=== PATIENT | male | born 1960 | race Caucasian/White ===

== ENCOUNTER 2018-02-20 05:12 | Emergency (ER) | payer BC, OTHER ==
[2018-02-20 05:25] VITALS: BP 157/109; PULSE 75; TEMP 97.6; BMI 39.9
--- NOTE | 2018-02-20 05:31 | PDOC ---
History of Present Illness - General History Source: Patient Exam Limitations: No Limitations - History of Present Illness Initial Comments: 02/20/18 05:38 The patient is a 57 year old male with no significant PMH who presents to the emergency department with groin pain beginning approximately yesterday. The patient reports working yesterday and doing heavy lifting, after which he developed mild groin pain. However, he reports this morning his groin pain has worsened. He reports taking Motrin prior to presentation to minimal relief. The patient denies testicular pain. He denies difficulty passing stool. He denies nausea or vomiting. The patient denies chest pain, shortness of breath, headache and dizziness. Denies fever, chills, nausea, vomit, diarrhea and constipation. Denies dysuria, frequency, urgency and hematuria. Allergies: NKA Past surgical history: None reported. Social history: No reported cigarette, alcohol, or drug use. PCP: None reported. <Enrique Solorzano - Last Filed: 02/20/18 05:36> - General History Source: Patient <PérezAlfredo kim - Last Filed: 02/20/18 19:23> - General Chief Complaint: Pain Stated Complaint: PAIN,GROIN Time Seen by Provider: 02/20/18 05:31 Past History <Enrique Solorzano - Last Filed: 02/20/18 05:36> - Past Medical History Anemia: No Asthma: No Cancer: No Cardiac Disorders: No CVA: No COPD: No CHF: No Dementia: No Diabetes: No GI Disorders: No Disorders: No HTN: No Hypercholesterolemia: No Liver Disease: No Seizures: No Thyroid Disease: No - Surgical History Abdominal Surgery: No Appendectomy: No Cardiac Surgery: No Cholecystectomy: No Lung Surgery: No Neurologic Surgery: No Orthopedic Surgery: No - Suicide/Smoking/Psychosocial Hx Smoking Status: No Smoking History: Never smoked Have you smoked in the past 12 months: No Number of Cigarettes Smoked Daily: 0 Information on smoking cessation initiated: No Hx Alcohol Use: No Drug/Substance Use Hx: No Substance Use Type: None Hx Substance Use Treatment: No <Alfredo Estrada - Last Filed: 02/20/18 19:23> - Past Medical History Allergies/Adverse Reactions: Allergies Allergy/AdvReac Type Severity Reaction Status Date / Time No Known Allergies Allergy Verified 02/20/18 05:24 Home Medications: Ambulatory Orders No Home Medications 0 dose .ROUTE UTDICT 11/01/13 Review of Systems - Review of Systems Able to Perform ROS?: Yes Comments:: 02/20/18 05:38 CONSTITUTIONAL: Absent: fever, chills, diaphoresis, generalized weakness, malaise, loss of appetite HEENT: Absent: rhinorrhea, nasal congestion, throat pain, throat swelling, difficulty swallowing, mouth swelling, ear pain, eye pain, visual Changes CARDIOVASCULAR: Absent: chest pain, syncope, palpitations, irregular heart rate, lightheadedness , peripheral edema RESPIRATORY: Absent: cough, shortness of breath, dyspnea with exertion, orthopnea, wheezing, stridor, hemoptysis GASTROINTESTINAL: Absent: abdominal pain, abdominal distension, nausea, vomiting, diarrhea, constipation, melena, hematochezia GENITOURINARY: Absent: dysuria, frequency, urgency, hesitancy, hematuria, flank pain, genital pain MUSCULOSKELETAL: (+) Groin pain. Absent:arthralgia, joint swelling SKIN: Absent: rash, itching, pallor HEMATOLOGIC/IMMUNOLOGIC: Absent: easy bleeding, easy bruising, lymphadenopathy, frequent infections ENDOCRINE: Absent: unexplained weight gain, unexplained weight loss, heat intolerance, cold intolerance NEUROLOGIC: Absent: headache, focal weakness or paresthesias, dizziness, unsteady gait, seizure, mental status changes, bladder or bowel incontinence PSYCHIATRIC: Absent: anxiety, depression, suicidal or homicidal ideation, hallucinations. <Enrique Solorzano - Last Filed: 02/20/18 05:36> *Physical Exam - Vital Signs Last Vital Signs Temp Pulse Resp BP Pulse Ox 97.6 F 75 20 157/109 97 02/20/18 05:24 02/20/18 05:24 02/20/18 05:24 02/20/18 05:24 02/20/18 05:24 - Physical Exam Comments: 02/20/18 05:38 GENERAL: Well developed, well nourished. Awake and alert. No acute distress. HEENT: Normocephalic, atraumatic. PERRLA, EOMI. No conjunctival pallor. Sclera are non- icteric. Moist mucous membranes. Oropharynx is clear. NECK: Supple. Full ROM. No JVD. Carotid pulses 2+ and symmetric, without bruits. No thyromegaly. No lymphadenopathy. CARDIOVASCULAR: Regular rate and rhythm. No murmurs, rubs, or gallops. Distal pulses are 2+ and symmetric. PULMONARY: No evidence of respiratory distress. Lungs clear to auscultation bilaterally. No wheezing, rales or rhonchi. ABDOMINAL: Soft. Non-tender. Non-distended. No rebound or guarding. No organomegaly. Normoactive bowel sounds. GENITAL: No testicular tenderness. No hernial defect palpated on right side. MUSCULOSKELETAL: Normal range of motion at all joints. No bony deformities or tenderness. No CVA tenderness. EXTREMITIES: No cyanosis. No clubbing. No edema. No calf tenderness. SKIN: Warm and dry. Normal capillary refill. No rashes. No jaundice. NEUROLOGICAL: Alert, awake, appropriate. Cranial nerves 2-12 intact. No deficits to light touch and temperature in face, upper extremities and lower extremities. No motor deficits in the in face, upper extremities and lower extremities. Normoreflexic in the upper and lower extremities. Normal speech. Toes are downgoing bilaterally. Gait is normal without ataxia. PSYCHIATRIC: Cooperative. Good eye contact. Appropriate mood and affect. <Enrique Solorzano - Last Filed: 02/20/18 05:36> - Vital Signs Last Vital Signs Temp Pulse Resp BP Pulse Ox 97.6 F 75 20 157/109 97 02/20/18 05:24 02/20/18 05:24 02/20/18 05:24 02/20/18 05:24 02/20/18 05:24 <Alfredo Estrada - Last Filed: 02/20/18 19:23> Medical Decision Making - Medical Decision Making 02/20/18 19:23 Dr. Estrada: The scribe's documentation has been prepared under my direction and personally reviewed by me in its entirery. I confirm that the note above accurately reflects all work, treatment, procedures, and medical decision making performed by me. <Alfredo Estrada - Last Filed: 02/20/18 19:23> *DC/Admit/Observation/Transfer - Attestations Scribe Attestion: 02/20/18 05:38 Documentation prepared by Enrique Solorzano, acting as bacteriologist medical for Alfredo Estrada DO. <Enrique Solorzano - Last Filed: 02/20/18 05:36> - Discharge Dispostion Decision to Admit order: No <Alfredo Estrada - Last Filed: 02/20/18 19:23> Diagnosis at time of Disposition: Groin pain Qualifiers: Laterality: right Qualified Code(s): R10.31 - Right lower quadrant pain - Discharge Dispostion Disposition: HOME Condition at time of disposition: Stable - Referrals Referrals: Micheal Molina MD [Staff Physician] - - Patient Instructions Printed Discharge Instructions: DI for Groin Strain Additional Instructions: Apply ice to the groin area for 10 mins three times a day. continue taking Motrin as you have every 8 hours. Use scrotal support for lifting while your still have pain Follow up with the doctor referred to you if symptoms don't improve - Post Discharge Activity Forms/Work/School Notes: Back to Work
== END 2018-02-20 05:38 | disposition home or self-care (01) ==
LOC: JER 05:12
DX: S39.011A Strain of muscle, fascia and tendon of abdomen, initial encounter (principal); X50.0XXA Overexertion from strenuous movement or load, initial encounter; Y93.89 Activity, other specified; Y92.69 Other specified industrial and construction area as the place of occurrence of the external cause; Y99.0 Civilian activity done for income or pay
CPT/HCPCS: 99282-25

== ENCOUNTER 2019-08-15 16:45 | Emergency (ER) | payer BC, OTHER ==
[2019-08-15 16:54] VITALS: BMI 38.4
--- NOTE | 2019-08-15 17:44 | PDOC ---
Documentation entered by Carlo Jang SCRIBE, acting as scribe for Doroteo Muñiz MD. Doroteo Muñiz MD: This documentation has been prepared by the Suhail lopez Daniel, SCRIBE, under my direction and personally reviewed by me in its entirety. I confirm that the documentation accurately reflects all work, treatment, procedures, and medical decision making performed by me. History of Present Illness - General Chief Complaint: Edema Stated Complaint: LT LEG PAIN/SWOLLEN Time Seen by Provider: 08/15/19 17:22 History Source: Patient Exam Limitations: No Limitations - History of Present Illness Initial Comments: 08/15/19 17:34 The patient is a 59 year old male with no past medical history here today for evaluation of left knee/lower leg pain and swelling. The patient reports that 1 week ago he was working with a jackhammer when it got stuck in the black top and he wrenched it which caused his left knee to twist. He notes that the pain in his left knee did not start immediately but has been hurting for the past week and he noted swelling from just above the knee to the calf. He states that his pain is better with movement and worse with rest. Patient denies headache, lightheadedness. Denies fever, chills. Denies chest pain, shortness of breath. Denies nausea, vomiting, diarrhea, abdominal pain. Denies travel/immobilization/history of DVT/PE Allergies: NKA Surgical history: none Past History - Past Medical History Allergies/Adverse Reactions: Allergies Allergy/AdvReac Type Severity Reaction Status Date / Time No Known Allergies Allergy Verified 08/15/19 16:52 Home Medications: Ambulatory Orders No Home Medications 0 dose .ROUTE UTDICT 11/01/13 Anemia: No Asthma: No Cancer: No Cardiac Disorders: No CVA: No COPD: No CHF: No Dementia: No Diabetes: No GI Disorders: No Disorders: No HTN: No Hypercholesterolemia: No Liver Disease: No Seizures: No Thyroid Disease: No - Surgical History Abdominal Surgery: No Appendectomy: No Cardiac Surgery: No Cholecystectomy: No Lung Surgery: No Neurologic Surgery: No Orthopedic Surgery: No - Psycho Social/Smoking Cessation Hx Smoking Status: No Smoking History: Never smoked Have you smoked in the past 12 months: No Number of Cigarettes Smoked Daily: 0 Hx Alcohol Use: No Drug/Substance Use Hx: No Substance Use Type: None Hx Substance Use Treatment: No Review of Systems - Review of Systems Able to Perform ROS?: Yes Comments:: 08/15/19 17:34 GENERAL/CONSTITUTIONAL: No fever or chills. No weakness. HEAD, EYES, EARS, NOSE AND THROAT: No change in vision. No ear pain or discharge. No sore throat. CARDIOVASCULAR: No chest pain or shortness of breath. RESPIRATORY: No cough, wheezing, or hemoptysis. GASTROINTESTINAL: No nausea, vomiting, diarrhea or constipation. GENITOURINARY: No dysuria, frequency, or change in urination. MUSCULOSKELETAL: +left knee pain and swelling. No neck or back pain. SKIN: No rash NEUROLOGIC: No headache, vertigo, loss of consciousness, or change in strength/ sensation. ENDOCRINE: No increased thirst. No abnormal weight change. HEMATOLOGIC/LYMPHATIC: No anemia, easy bleeding, or history of blood clots. ALLERGIC/IMMUNOLOGIC: No hives or skin allergy. Constitutional: No: Chills, Fever Respiratory: No: Cough, Shortness of Breath, SOB with Exertion Cardiac (ROS): Yes: Edema. No: Chest Pain, Palpitations ABD/GI: No: Diarrhea, Vomiting Integumentary: No: Bruising, Rash Neurological: No: Headache, Paresthesia, Weakness All Other Systems: Reviewed and Negative *Physical Exam - Vital Signs Last Vital Signs Temp Pulse Resp BP Pulse Ox 98.2 F 70 18 168/97 98 08/15/19 16:52 08/15/19 16:52 08/15/19 16:52 08/15/19 16:52 08/15/19 16:52 - Physical Exam Comments: 08/15/19 17:35 GENERAL: The patient is awake, alert, and fully oriented, in no acute distress. HEAD:[Normal with no signs of trauma. EYES: Pupils equal, round and reactive to light, extraocular movements intact, sclera anicteric, conjunctiva clear. EXTREMITIES: LLE: +soft tissue swelling vs superpatellar effusion. +edema from calf to knee. +left calf 50% larger than right calf. 2+ DP/PT pulses. Normal range of motion. NEUROLOGICAL: Normal speech, normal gait. PSYCH: Normal mood, normal affect. SKIN: Warm, Dry, normal turgor, no rashes or lesions noted. No cellulitis or erythema. ED Treatment Course - RADIOLOGY Radiology Studies Ordered: Category Date Time Status KNEE 2 POS-LEFT [RAD] Stat Radiology 08/15/19 17:29 Ordered DUPLEX VASCUL US-1 LEG [US] Stat Ultrasound 08/15/19 17:29 Ordered Radiograph Interpretation: 08/15/19 19:25 Left knee X-ray: 2 views of the left knee reveal no sign of fracture or subluxation and no sign of blastic or lytic changes. There are some arthritic findings, flabella and small joint effusion. Correlation recommended. Left lower extremity venous ultrasound: The exam was performed utilizing compression, grayscale, color flow and doppler sonography. There is no sonographic evidence of deep vein thrombosis. No obvious superficial thrombophlebitis is noted. If there is clinical concern for possible isolated calf DVT or if there is a clinical diagnosis of uncomplicated superficial thrombophlebitis, then correlation with close follow up sonography is suggested. Impression: No DVT is identified involving the left leg. Please see above. Note is made of an approximately 5 x 3 x 1.3 cm popliteal fossa cyst without gross sonographic evidence of dissection/rupture. Medical Decision Making - Medical Decision Making 08/15/19 17:41 A portion of this note was documented by scribe services under my direction. I have reviewed the details of the note, within reason, and agree with the documentation with the following case summary and management plan written by me. Relatively healthy and very active 59-year-old male presents with left lower extremity pain and swelling. Patient recalls knee sprain about 1 week ago while working with a jackhammer, was relatively asymptomatic after that except for intermittent calf cramping worse with rest, improved with movement. This evening, patient noted swelling to his left leg, so he presents for evaluation. No fevers or chills, no cardiopulmonary complaints, no personal or family history of DVT or PE, no DVT risk factors. Vitals are normal Patient is well-appearing and comfortable Left lower extremity as noted with significant nonpitting edema distal to the left knee, question associated knee effusion versus soft tissue swelling, but no limitation of range of motion of the knee with full flexion and extension with full strength. There is no bony deformity or focal tenderness, full range of motion of all joints, neurovascular intact distally. 59-year-old male with atraumatic left knee pain and left lower semi-swelling, question soft tissue strain with edema, rule out DVT. Neurovascular intact. Left knee x-ray Left lower extremity Doppler Declines pain medication Reassess 08/15/19 19:27 X-ray without fracture but small knee effusion, Doppler without DVT but with popliteal cyst without rupture or dissection. Question knee sprain with tracking fluid, neurovascularly intact, feels well and is ambulating, agrees with discharge plan, will follow-up orthopedics, understands return criteria Discharge - Discharge Information Problems reviewed: Yes Clinical Impression/Diagnosis: Swelling of left lower extremity Strain of left knee Qualifiers: Encounter type: initial encounter Qualified Code(s): S86.912A - Strain of unspecified muscle(s) and tendon(s) at lower leg level, left leg, initial encounter Condition: Stable Disposition: HOME - Follow up/Referral Referrals: Bennett Patino MD [Staff Physician] - - Patient Discharge Instructions Patient Printed Discharge Instructions: DI for Knee Sprain, DI for Peripheral Edema, Unilateral Additional Instructions: Activity as tolerated. Stay hydrated. An xray showed no bone breaks but a small fluid collection around the knee, which could be from the knee sprain. This fluid can sometimes track down the leg , explaining the swelling. An ultrasound showed no clot in the veins. Tylenol 1000 mg every 8 hours and/or ibuprofen 600 mg every 8 hours as needed for pain. Ice and elevate the affected areas for 20 minutes every 3-4 hours to reduce swelling. Continue your medications as previously prescribed by your physician. You should follow up with your primary doctor as soon as possible regarding today's emergency department visit. You should also see an orthopedic (consider calling Dr. Patino). If symptoms persist, an MRI may be needed to further evaluate the cause. Return to the emergency department for any new or concerning symptoms, particularly persistent or worsening pain, severe swelling or discoloration, numbness or weakness, fevers or chills. - Post Discharge Activity
[2019-08-15 20:09] VITALS: BP 153/89; PULSE 63; TEMP 98.4
== END 2019-08-15 20:05 | disposition home or self-care (01) ==
LOC: JER 16:45
DX: S86.812A Strain of other muscle(s) and tendon(s) at lower leg level, left leg, initial encounter (principal); M25.462 Effusion, left knee; M71.22 Synovial cyst of popliteal space [Baker], left knee; X50.0XXA Overexertion from strenuous movement or load, initial encounter; W31.0XXA Contact with mining and earth-drilling machinery, initial encounter; Y93.89 Activity, other specified; Y92.488 Other paved roadways as the place of occurrence of the external cause; Y99.0 Civilian activity done for income or pay
CPT/HCPCS: 73560-TC-LT-FY; 93971-TC; 99281-25

== ENCOUNTER → 2019-09-05 | Day surgery (SDC) | payer BC ==
[2019-09-05 13:41] LABS: BASO % 0.8 % (0-2.0); EOS % 4.6 % (0-4.5); HEMATOCRIT 40.2 % (35.4-49); HEMOGLOBIN 13.6 GM/dL (11.7-16.9); LYMPH % 18.2 % (8-40); MCHC 33.7 g/dl (32.0-35.9); MEAN PLT VOLUME 7.5 fl (7.5-11.1); MONO % 7.8 % (3.8-10.2); NEUT % 68.6 % (42.8-82.8); PLATELET COUNT 295 K/MM3 (134-434); RBC 4.68 M/mm3 (4.00-5.60); RDW 12.7 % (11.9-15.9); URINE APPEARANCE CLEAR; URINE BILIRUBIN NEGATIVE (NEGATIVE); URINE COLOR YELLOW; URINE GLUCOSE (UA) NEGATIVE (NEGATIVE); URINE KETONE NEGATIVE (NEGATIVE); URINE LEUK ESTERASE NEGATIVE (NEGATIVE); URINE NITRITE NEGATIVE (NEGATIVE); URINE PROTEIN NEGATIVE (NEGATIVE); URINE UROBILINOGEN 0.2 mg/dL (0.2-1.0); WHITE BLOOD COUNT 7.8 K/mm3 (4.0-10.0)
[2019-09-05 13:51] LABS: INR 1.07 (0.83-1.09); PROTHROMBIN TIME (PATIENT) 12.6 SEC (9.7-13.0)
[2019-09-05 13:54] LABS: ACTIVATED PTT 34.9 SECONDS (25.2-36.5)
[2019-09-05 14:15] LABS: ALBUMIN 3.4 g/dl (3.4-5.0); BILIRUBIN,TOTAL 0.4 mg/dL (0.2-1); CALCIUM 8.9 mg/dL (8.5-10.1); CREATININE 0.7 mg/dL (0.55-1.3); POTASSIUM 3.5 mmol/L (3.5-5.1); TOT PROT 6.9 g/dl (6.4-8.2)
--- NOTE | 2019-09-05 23:37 | EKG ---
Test Reason : Blood Pressure : / mmHG Vent. Rate : 077 BPM Atrial Rate : 077 BPM P-R Int : 174 ms QRS Dur : 104 ms QT Int : 416 ms P-R-T Axes : 055 -02 021 degrees QTc Int : 470 ms NORMAL SINUS RHYTHM MINIMAL VOLTAGE CRITERIA FOR LVH, MAY BE NORMAL VARIANT BORDERLINE ECG WHEN COMPARED WITH ECG OF 14-JAN-2014 21:53, NO SIGNIFICANT CHANGE WAS FOUND Confirmed by MD Carolina, Matthew ([id number]) on 09/05/2019 11:36:39 PM Referred By: BEBETO GALLAGHER DR Confirmed By:Matthew Figueroa MD
== END | disposition home or self-care (01) ==
LOC: EDSTATUS 12:52 → JASU-SURG 13:04
PROVIDERS: ATTEND Orthopaedic Surgery
DX: Z53.8 Procedure and treatment not carried out for other reasons (principal)
CPT/HCPCS: 36415; 80053; 81003; 85025; 85610; 85730; 93005; 93010

== ENCOUNTER 2019-09-10 04:52 | Day surgery (SDC) | payer BC ==
[2019-09-08 15:25] VITALS: BMI 38.4
--- NOTE | 2019-09-10 09:22 | HP ---
Satellite [facility] - Chief Complaint Chief Complaint: left knee pain - Past Medical History Allergies/Adverse Reactions: Allergies Allergy/AdvReac Type Severity Reaction Status Date / Time No Known Allergies Allergy Verified 09/08/19 15:21 - Current Medications Current Medications: Home Medications Medication Instructions Recorded No Home Medications 0 dose .ROUTE UTDICT 11/01/13 Hydrocodone/Acetaminophen 1 each PO Q6H #15 tablet MDD 4 09/10/19 [Hydrocodone-Acetamin 5-325 mg] Satellite Physical Exam - Physical Examination General Appearance: Well Nourished, Well Developed, Alert & Oriented x3 ENT: Clear Lung: Normal air movement Extremities: Other (left knee -+ swelling, + ttp, decr rom, + mcmurrays, nvi) Neurological: Intact, Alert, Oriented Satellite Impression/Plan - Impression/Plan Impression: left knee internal derangement Operative Procedure: left knee arthroscopy Date to be Performed: 09/10/19
[2019-09-10] MEDS ORDERED: ONDANSETRON 4 MG/2 ML VIAL IVPUSH PRN (11:05)
[2019-09-10] MEDS ORDERED: oxyCODONE HCL 5 MG TABLET PO PRN ×2 (11:05)
[2019-09-10] MEDS ORDERED: LACTATED RINGERS SOLUTION 1,000 ML IV SCH (11:15)
[2019-09-10] MEDS ORDERED: MIDAZOLAM HCL 2 MG/2 ML SINGLE DOSE VIAL ONE (12:40)
[2019-09-10] MEDS ORDERED: ceFAZolin 2 GRAM PREMIX BAG IVPB ONE (12:45)
[2019-09-10] MEDS ORDERED: ceFAZolin SODIUM 1 GM VIAL ONE (12:48)
[2019-09-10] MEDS ORDERED: DESFLURANE GAS 240 ML BOTTLE IH ONE (13:03)
[2019-09-10] MEDS ORDERED: BUPIVACAINE HCL/PF 0.5% (5 MG/ML) 30 ML VIAL IJ ONE (13:11)
[2019-09-10] MEDS ORDERED: KETOROLAC TROMETHAMINE 30 MG/1 ML VIAL ONE (13:22)
--- NOTE | 2019-09-10 13:34 | OP ---
Operative Note - Note: Operative Date: 09/10/19 Pre-Operative Diagnosis: left knee medial meniscus tear, OA Operation: left knee arthroscopy, partial medial meniscectomy, partial synovectomy, debridement chondroplasty Post-Operative Diagnosis: Same as Pre-op Surgeon: Mac Wilder Anesthesiologist/AIRFIELD MANAGER: Gela Metz Anesthesia: General, Local Specimens Removed: shavings Estimated Blood Loss (mls): 0 Drains, Volume Out (mls): 0 Blood Volume Replaced (mls): 0 Fluid Volume Replaced (mls): 700 Operative Report Dictated: Yes
[2019-09-10 16:38] VITALS: BP 147/87; PULSE 83; TEMP 97.2
--- NOTE | 2019-09-15 17:01 | PATH ---
Surgical Pathology Report Patient Name: VIVIANA CRUM [facility]. Rec. #: [id number] /Age/Gender: 1960 (Age: 59) / M Account: [id number] Location: [facility] Taken: 09/10/2019 Received: 09/12/2019 Reported: 09/15/2019 Physicians: Mac Wilder M.D. Specimen(s) Received KNEE SHAVINGS, LEFT Clinical History Left knee medial meniscus tear Final Diagnosis KNEE SHAVINGS, LEFT, ARTHROSCOPY, PARTIAL MEDIAL MENISCECTOMY, PARTIAL SYNOVECTOMY, DEBRIDEMENT CHONDROPLASTY: FRAGMENTS OF DENSE FIBROCONNECTIVE TISSUE, FIBROADIPOSE TISSUE, AND SYNOVIUM WITH MARKED ACUTE AND CHRONIC INFLAMMATION AND REACTIVE CHANGES. Electronically Signed Pinky Pascal M.D. Gross Description Received in formalin, labeled "left knee shavings," is a 5.5 x 4.5 x 0.4 cm. aggregate of marcus-yellow soft tissue fragments. A financial services sales representative portion is submitted in one cassette. 09/12/2019 [facility]09/12/2019
--- NOTE | 2019-09-17 14:27 | OP ---
DATE OF OPERATION: 09/10/2019 PREOPERATIVE DIAGNOSES: Left knee pain, medial meniscus tear, and osteoarthritis. POSTOPERATIVE DIAGNOSES: Left knee pain, medial meniscus tear, osteoarthritis, and synovitis. PROCEDURE: Left knee arthroscopy, partial medial meniscectomy, partial synovectomy, and debridement chondroplasty. SURGEON: Elliott Tate MD OPERATIONS SPECIALISTS: None. ANESTHESIOLOGIST: Gela Dominguez CRNA ANESTHESIA: LMA, general anesthesia with local injection of 20 mL of 0.5% Marcaine. SPECIMEN: Arthroscopic shavings. DRAINS: None. COMPLICATIONS: None. BLOOD LOSS: None. FLUID REPLACEMENT: 700 mL PlasmaLyte. INDICATION: This patient is a 59-year-old male with preoperative diagnosis of left knee pain, partial medial meniscus tear, and osteoarthritis, after understanding the potential risks, complications, alternatives, and benefits of surgical versus nonsurgical treatment, the patient elected to undergo this procedure. DESCRIPTION OF PROCEDURE: The patient was brought into the operating room, peripheral IV placed and IV sedation given. Two g of Ancef were given. LMA anesthesia was induced. The patient was placed into the supine position with ample padding throughout. Tourniquet was applied to the left thigh with ample padding. The left lower extremity was then prepped and draped in a sterile fashion, elevated, and exsanguinated with Esmarch bandage, and tourniquet inflated to 275 mmHg. A superior mediolateral portal was established. A lateral portal was established. An arthroscope was introduced in the joint. A medial portal was established under direct visualization using a spinal needle, and a diagnostic arthroscopy was performed. In the medial compartment, the patient was seen to have a complex tear of the posterior aspect of the body and the posterior horn of the medial meniscus. A combination of a straight basket forceps and a curved shaver was introduced into the medial compartment, and a partial medial meniscectomy was performed. The patient also had some osteoarthritis, and a gentle debridement chondroplasty was performed. The patient had grade 2 changes in the medial femoral condyle and medial tibial plateau. Next our attention was turned to the intercondylar notch. The patient had a tremendous amount of synovitis. Therefore, a partial synovectomy was performed. After this was done, I was able to visualize the intercondylar notch and ACL. It was probed, it looked good, and had the appropriate tension. Additional synovectomy was performed of the anterior aspect of the lateral compartment. The lateral compartment was then directly visualized, and the patient's lateral meniscus looked good. Lateral femoral condyle and lateral tibial plateau all looked good with no significant osteoarthritis. Next our attention turned to the patellofemoral joint. The patient had some significant osteoarthritis on the undersurface of the kneecap, widespread grade 3. This was debrided with a gentle debridement chondroplasty, as well as in the femoral trochlea also areas of grade 3 with grooving. This was debrided as well. The area was copiously irrigated and washed out. All instrumentation removed. Excess saline removed. Arthroscopy portals were closed with 3-0 nylon suture. Twenty mL of 0.5% Marcaine introduced into the joint. The area was then washed and dried and covered with Xeroform, 4 x 4 gauze, Webril, and a 6-inch Guillermo bandage. Tourniquet was taken down after total tourniquet time of about 20 minutes. There was no complication during the case. Patient tolerated the procedure quite well and was brought to the ambulatory recovery room in stable condition. ELLIOTT TTAE M.D. [id number]
== END 2019-09-10 16:00 | disposition home or self-care (01) ==
LOC: JASU-SURG 04:52
PROVIDERS: ATTEND Orthopaedic Surgery
PROC: 0SQD4ZZ Repair Left Knee Joint, Percutaneous Endoscopic Approach (ICD-10-PCS; principal; 2019-09-10 12:00)
DX: S83.232A Complex tear of medial meniscus, current injury, left knee, initial encounter (principal); X58.XXXA Exposure to other specified factors, initial encounter; Y93.9 Activity, unspecified; Y92.9 Unspecified place or not applicable; Y99.9 Unspecified external cause status; M17.12 Unilateral primary osteoarthritis, left knee; M65.862 Other synovitis and tenosynovitis, left lower leg
CPT/HCPCS: 88304-TC; 94760